=== PATIENT | male | born 1970 | race Caucasian/White ===

== ENCOUNTER 2021-03-26 22:21 | Inpatient (IN) | payer OTHER, MEDICARE ==
[~2021-03-26] VITALS: Ht 180.3 cm; Wt 97.1 kg
[2021-03-26 23:23] LABS: HEMOGLOBIN 15.2 gm/dl (14.0-17.5); RED BLOOD COUNT 5.01 M/UL (4.20-5.50); WHITE BLOOD COUNT 3.5 K/UL (4.5-11.0)
[2021-03-26 23:51] LABS: BUN/CREATININE RATIO 16 (0-10)
[2021-03-27] MEDS ORDERED: HYDRALAZINE HC100 MG PO (11:23)
[2021-03-27] MEDS ORDERED: LOPRESSOR 25 MG25 MG PO (11:23)
[2021-03-27] MEDS ORDERED: PROTONIX 40 MG40 M1 PO (11:24)
[2021-03-27] MEDS ORDERED: CYCLOBENZAPRINE10 MG PO (11:25)
[2021-03-27] MEDS ORDERED: LIPITOR20 MG PO (11:26)
[2021-03-27] MEDS ORDERED: JARDIANCE10 MG PO (11:27)
[2021-03-27] MEDS ORDERED: BENICAR40 MG PO (11:27)
[2021-03-27] MEDS ORDERED: AMARYL4 MG PO (11:27)
[2021-03-27] MEDS ORDERED: RYBELSUS14 MG PO (11:31)
[2021-03-27] MEDS ORDERED: VITAMIN D3125 MCG PO (12:44)
[2021-03-27] MEDS ORDERED: VITAMIN D350 MC3 PO (12:44)
[2021-03-28 05:21] LABS: HEMOGLOBIN 13.7 gm/dl (14.0-17.5); RED BLOOD COUNT 4.6 M/UL (4.20-5.50); WHITE BLOOD COUNT 2.8 K/UL (4.5-11.0)
[2021-03-28 05:57] LABS: BUN/CREATININE RATIO 20 (0-10)
[2021-03-29 03:07] LABS: RED BLOOD COUNT 4.56 M/UL (4.20-5.50)
[2021-03-29 03:08] LABS: WHITE BLOOD COUNT 4.3 K/UL (4.5-11.0)
[2021-03-29 03:37] LABS: BUN/CREATININE RATIO 22 (0-10)
[2021-03-30 05:25] LABS: HEMOGLOBIN 13.7 gm/dl (14.0-17.5); RED BLOOD COUNT 4.55 M/UL (4.20-5.50); WHITE BLOOD COUNT 4.7 K/UL (4.5-11.0)
[2021-03-30 05:44] LABS: BUN/CREATININE RATIO 26 (0-10)
[2021-03-31] MEDS ORDERED: PROAIR HFA8.5 GM INH (11:05)
[2021-03-31] MEDS ORDERED: CEFUROXIME500 MG PO (11:05)
[2021-03-31] MEDS ORDERED: VITAMIN C 500500 MG PO (11:05)
== END 2021-03-31 12:36 | disposition home or self-care (01) | DRG 871 ==
LOC: ER1 22:21 → CDU 03-27 02:40 → M/S 03-27 02:40
PROVIDERS: Internal Medicine; ADMIT Internal Medicine
PROC: 3E0333Z Introduction of Anti-inflammatory into Peripheral Vein, Percutaneous Approach (ICD-10-PCS; 2021-03-27)
PROC: 8E0ZXY6 Isolation (ICD-10-PCS; 2021-03-27)
PROC: XW13325 Transfusion of Convalescent Plasma (Nonautologous) into Peripheral Vein, Percutaneous Approach, New Technology Group 5 (ICD-10-PCS; principal; 2021-03-28)
PROC: XW033E5 Introduction of Remdesivir Anti-infective into Peripheral Vein, Percutaneous Approach, New Technology Group 5 (ICD-10-PCS; 2021-03-28)
DX: A41.89 Other specified sepsis (principal); U07.1 COVID-19; J12.82 Pneumonia due to coronavirus disease 2019; J96.01 Acute respiratory failure with hypoxia; N17.9 Acute kidney failure, unspecified; C82.90 Follicular lymphoma, unspecified, unspecified site; R65.20 Severe sepsis without septic shock; D72.819 Decreased white blood cell count, unspecified; T38.0X5A Adverse effect of glucocorticoids and synthetic analogues, initial encounter; E11.9 Type 2 diabetes mellitus without complications; Z90.49 Acquired absence of other specified parts of digestive tract; Z82.49 Family history of ischemic heart disease and other diseases of the circulatory system; Z79.899 Other long term (current) drug therapy
CPT/HCPCS: 0240U; 36415; 36600; 71045; 71275; 80048; 80053; 82550; 82553; 82803; 82962; 83605; 83615; 83874; 84439; 84443; 84484; 85025; 85379; 85652; 86140; 86900; 86901; 86927; 87040; 93005; 94760; 99285; J0692; J1100; J1650; J7030; J7050; M0243; Q9967